=== PATIENT | female | born 1945 | race Asian ===

== ENCOUNTER 2017-04-13 07:10 | Emergency (ER) | payer SELFPAY ==
[2017-04-13 09:15] VITALS: BP 156/74
== END 2017-04-13 09:15 | disposition home or self-care (01) ==
LOC: ED 07:10
DX: S01.01XA Laceration without foreign body of scalp, initial encounter (principal); S20.212A Contusion of left front wall of thorax, initial encounter; I10 Essential (primary) hypertension; W17.89XA Other fall from one level to another, initial encounter; Y93.89 Activity, other specified; Y99.8 Other external cause status; Y92.89 Other specified places as the place of occurrence of the external cause
CPT/HCPCS: 90715

== ENCOUNTER 2017-04-20 09:34 | Emergency (ER) | payer SELFPAY ==
[~2017-04-20] VITALS: Ht 157.5 cm; Wt 56.2 kg
[2017-04-20 10:03] VITALS: BP 131/88
== END 2017-04-20 10:03 | disposition home or self-care (01) ==
LOC: ED 09:34
DX: S01.01XD Laceration without foreign body of scalp, subsequent encounter (principal); X58.XXXD Exposure to other specified factors, subsequent encounter; Y93.89 Activity, other specified; Y92.89 Other specified places as the place of occurrence of the external cause; Y99.8 Other external cause status